=== PATIENT | female | born 1930 | race African-American/Black ===

== ENCOUNTER 2017-09-14 20:20 | Inpatient (IN) | payer MEDICARE, BC ==
[~2017-09-14] VITALS: Ht 160 cm; Wt 71.7 kg
[2017-09-15] MEDS: FUROSEMIDE 40MG/4ML VIAL IV STA ×3 (00:47→01:46)
[2017-09-15] MEDS ORDERED: NITROGLYCERIN OINT 1GM/INCH UDPKT TD STA (00:47)
[2017-09-15] MEDS ORDERED: LEVOFLOXACIN 750MG PREMIX 150 ML IV ONE (01:15)
[2017-09-15 01:31] LABS: BASOPHILS % 0.6 % (0.0-2.0); EOSINOPHILS % 0.5 % (0.0-5.0); HEMATOCRIT. 34.1 % (36.0-48.0); HEMOGLOBIN. 10.7 g/dL (12.0-16.0); LYMPHOCYTES % 17.2 % (20.0-50.0); MEAN CORPUSCULAR HEMOGLOBIN 29.5 pg (28.0-32.0); MEAN CORPUSCULAR VOLUME 93.7 fL (81.0-99.0); MEAN PLATELET VOLUME 8.9 fl (7.4-10.4); MONOCYTES % 13.2 % (2.0-8.0); NEUTROPHILS % 68.5 % (40.0-76.0); PLATELET 243 x1000/uL (130-400); RED BLOOD CELL COUNT 3.64 mill/uL (4.2-5.4); RED CELL DISTRIBUTION WIDTH 15.5 % (11.6-14.6)
[2017-09-15 01:40] LABS: INR 1.3; PROTHROMBIN TIME 13.2 sec (9.4-11.6)
[2017-09-15 01:48] LABS: CARBON DIOXIDE 25 mEq/L (21-32); CHLORIDE 107 mEq/L (98-107); TROPONIN I 0.09 ng/mL (0.00-0.04)
[2017-09-15 01:49] LABS: CREATINE KINASE MB FRACTION 3.1 ng/mL (0.5-3.6)
[2017-09-15] MEDS: SODIUM CHLORIDE 0.9% 1,000 ML IV ONE ×2 (02:55→02:58)
[2017-09-15 03:08] LABS: CLARITY URINE CLEAR (CLEAR); COLOR URINE YELLOW (YELLOW); KETONES URINE TRACE (NEGATIVE); LEUKOCYTE ESTERASE URINE NEGATIVE (NEGATIVE); NITRITE URINE NEGATIVE (NEGATIVE); OCCULT BLOOD URINE NEGATIVE (NEGATIVE); PH URINE 6.5 (4.5-8.0); PROTEIN URINE 2+ (NEGATIVE)
[2017-09-15] MEDS ORDERED: ASPIRIN 325MG EC TABLET PO ONE (03:30)
[2017-09-15] MEDS ORDERED: IPRATROPIUM/ALBUTEROL 0.5-3(2.5)MG/3ML NEB INH PRN (10:45)
[2017-09-15] MEDS ORDERED: MORPHINE SULFATE 4 MG/ML CPJ (NOT FOR IM USE) IV PRN (10:45)
[2017-09-15] MEDS ORDERED: NA PHOS,M-B/NA PHOS,DI-BA ENEMA 118ML PR PRN (10:45)
[2017-09-15] MEDS ORDERED: DOCUSATE SODIUM 100MG CAPSULE PO PRN (10:45)
[2017-09-15] MEDS ORDERED: ONDANSETRON HCL 4MG/2ML VIAL IV PRN (10:45)
[2017-09-15] MEDS ORDERED: GUAIFENESIN 200MG/10ML SUGAR FREE UDC PO PRN (10:45)
[2017-09-15] MEDS ORDERED: NITROGLYCERIN 0.4MG TABLET SL SL PRN (10:45)
[2017-09-15] MEDS ORDERED: MAGNESIUM/ALUMINUM HYDROXIDE/SIMETHICONE 30ML UDC PO PRN (10:45)
[2017-09-15] MEDS ORDERED: CLONIDINE 0.1MG TABLET PO PRN (10:45)
[2017-09-15] MEDS ORDERED: ACETAMINOPHEN 325MG TABLET PO PRN (10:45)
[2017-09-15] MEDS ORDERED: DIPHENHYDRAMINE 50MG/ML VIAL IV PRN (10:45)
[2017-09-15] MEDS ORDERED: AZITHROMYCIN 500 MG in DEXT 5% WATER 250 ML IV SCH (10:45)
[2017-09-15 11:21] LABS: T4 FREE 1.45 ng/dL (0.76-1.46)
[2017-09-15] MEDS ORDERED: ENOXAPARIN 30MG/0.3ML SYR SUBCUT SCH (11:30)
[2017-09-15 11:46] LABS: VITAMIN B12 SERUM 1905 pg/mL (211-911)
[2017-09-15 11:51] LABS: FOLIC ACID (FOLATE) SERUM > 20.00 ng/mL (>5.38)
[2017-09-15] MEDS ORDERED: AZITHROMYCIN 500 MG in DEXT 5% WATER 250 ML IV NR (12:00)
[2017-09-15] MEDS ORDERED: CEFTRIAXONE 1 G PREMIX 50 ML IV SCH (13:00)
[2017-09-15] MEDS ORDERED: FUROSEMIDE 40MG/4ML VIAL IVP NR (13:15)
[2017-09-15 16:10] LABS: TROPONIN I 0.05 ng/mL (0.00-0.04)
[2017-09-15 16:11] LABS: CREATINE KINASE MB FRACTION 2.2 ng/mL (0.5-3.6)
[2017-09-15] MEDS ORDERED: TRAMADOL 50MG TABLET PO PRN (18:00)
[2017-09-15 18:08] LABS: *AMPHETAMINES SCREEN URINE NEGATIVE (NEGATIVE); *BARBITURATES SCREEN URINE NEGATIVE (NEGATIVE); *BENZODIAZEPINES SCREEN URINE NEGATIVE (NEGATIVE); *COCAINE SCREEN URINE NEGATIVE (NEGATIVE); CANNABINOID URINE SCREEN NEGATIVE (NEGATIVE); METHADONE URINE SCREEN NEGATIVE (NEGATIVE); OPIATES URINE SCREEN NEGATIVE (NEGATIVE); PHENCYCLIDINE URINE SCREEN NEGATIVE (NEGATIVE)
[2017-09-15 20:00] VITALS: BP 132/61
[2017-09-15 20:30] VITALS: BP 132/61
[2017-09-15] MEDS ORDERED: ZOLPIDEM TARTRATE 5MG TABLET PO PRN (21:00)
[2017-09-15] MEDS: GUAIFENESIN/DM 600MG/30MG ER TAB 12HR PO SCH (21:00)
[2017-09-15] MEDS: LISINOPRIL 20MG TABLET PO SCH (21:00)
[2017-09-15] MEDS: SUCRALFATE 1 G/10 ML UDC PO SCH (21:00)
[2017-09-16] VITALS: BP 125/55
[2017-09-16 00:41] LABS: CREATINE KINASE MB FRACTION 1.9 ng/mL (0.5-3.6); TROPONIN I 0.06 ng/mL (0.00-0.04)
[2017-09-16] MEDS ORDERED: CHOL20004 PO (03:56)
[2017-09-16] MEDS ORDERED: ENAL10TA PO (03:56)
[2017-09-16] MEDS ORDERED: METO25TA6 PO (03:56)
[2017-09-16] MEDS ORDERED: SIMV40TA5 PO (03:56)
[2017-09-16] MEDS ORDERED: RIVA10TA PO (03:56)
[2017-09-16] MEDS ORDERED: ENAL20TA PO (03:56)
[2017-09-16] MEDS ORDERED: FURO20TA4 PO (03:56)
[2017-09-16] MEDS ORDERED: DABI150C PO (03:56)
[2017-09-16] MEDS ORDERED: METF750T2 PO (03:56)
[2017-09-16] MEDS ORDERED: POTA20TA12 PO (03:56)
[2017-09-16 04:00] VITALS: BP 117/52
[2017-09-16] MEDS ORDERED: TORS20TA4 PO (05:12)
[2017-09-16 08:00] VITALS: BP 125/56
[2017-09-16] MEDS: GUAIFENESIN/DM 600MG/30MG ER TAB 12HR PO SCH ×2 (09:00→20:36)
[2017-09-16] MEDS ORDERED: DEXTROSE 50% WATER 50ML SYRINGE IV PRN (09:45)
[2017-09-16] MEDS: SUCRALFATE 1 G/10 ML UDC PO SCH ×4 (11:20→20:35)
[2017-09-16] MEDS: ASPIRIN 325MG EC TABLET PO SCH (11:21)
[2017-09-16] MEDS: FAMOTIDINE 20MG/2ML VIAL IV SCH (11:22)
[2017-09-16] MEDS: CARVEDILOL 3.125 MG TABLET PO SCH ×2 (11:22→17:12)
[2017-09-16] MEDS: FUROSEMIDE 40MG/4ML VIAL IVP SCH ×2 (11:22→17:12)
[2017-09-16] MEDS: LISINOPRIL 20MG TABLET PO SCH ×2 (11:23→20:35)
[2017-09-16 12:00] VITALS: BP 133/57
[2017-09-16] MEDS ORDERED: AZITHROMYCIN 500 MG in SODIUM CHLORIDE 0.9% 250 ML IV SCH (12:00)
[2017-09-16] MEDS: INSULIN LISPRO 100 UNITS/ML SUBCUT SCH ×3 (12:29→20:33)
[2017-09-16] MEDS: BLOOD SUGAR DIAGNOSTIC STRIP TEST SCH ×3 (12:29→20:34)
[2017-09-16] MEDS: ZINC SULFATE 220 MG ( 50 ) CAPSULE PO SCH (13:12)
[2017-09-16 16:00] VITALS: BP 118/70
[2017-09-16] MEDS: RIVAROXABAN 15 MG TABLET PO SCH (17:12)
[2017-09-16 19:42] VITALS: BP 128/78
[2017-09-16] MEDS: ATORVASTATIN CALCIUM 20MG TABLET PO SCH (20:35)
[2017-09-16] MEDS: CEFTRIAXONE 1 G PREMIX 50 ML IV SCH (20:35)
[2017-09-17] VITALS: BP 117/56
[2017-09-17 04:00] VITALS: BP 124/60
[2017-09-17] MEDS: INSULIN LISPRO 100 UNITS/ML SUBCUT SCH ×4 (06:16→20:10)
[2017-09-17] MEDS: BLOOD SUGAR DIAGNOSTIC STRIP TEST SCH ×4 (06:16→20:10)
[2017-09-17] MEDS: SUCRALFATE 1 G/10 ML UDC PO SCH ×4 (06:29→21:07)
[2017-09-17 07:02] LABS: BASOPHILS % 0.5 % (0.0-2.0); EOSINOPHILS % 2.1 % (0.0-5.0); HEMATOCRIT. 29.5 % (36.0-48.0); HEMOGLOBIN. 9.8 g/dL (12.0-16.0); LYMPHOCYTES % 20.1 % (20.0-50.0); MEAN CORPUSCULAR HEMOGLOBIN 30.8 pg (28.0-32.0); MEAN CORPUSCULAR VOLUME 92.5 fL (81.0-99.0); MEAN PLATELET VOLUME 8.9 fl (7.4-10.4); MONOCYTES % 14.1 % (2.0-8.0); NEUTROPHILS % 63.2 % (40.0-76.0); PLATELET 182 x1000/uL (130-400); RED BLOOD CELL COUNT 3.18 mill/uL (4.2-5.4); RED CELL DISTRIBUTION WIDTH 15.6 % (11.6-14.6)
[2017-09-17 08:50] VITALS: BP 126/67
[2017-09-17] MEDS ORDERED: POTASSIUM CHLORIDE 20MEQ/PACKET PO SCH (09:00)
[2017-09-17] MEDS: AZITHROMYCIN 500 MG TABLET PO SCH (09:41)
[2017-09-17] MEDS: FUROSEMIDE 40MG/4ML VIAL IVP SCH ×2 (09:41→17:43)
[2017-09-17] MEDS: FAMOTIDINE 20MG/2ML VIAL IV SCH (09:41)
[2017-09-17] MEDS: LISINOPRIL 20MG TABLET PO SCH ×2 (09:42→21:07)
[2017-09-17] MEDS: ZINC SULFATE 220 MG ( 50 ) CAPSULE PO SCH (09:42)
[2017-09-17] MEDS: CARVEDILOL 3.125 MG TABLET PO SCH ×3 (09:42→17:43)
[2017-09-17] MEDS: GUAIFENESIN/DM 600MG/30MG ER TAB 12HR PO SCH ×2 (09:42→21:06)
[2017-09-17] MEDS: ASPIRIN 325MG EC TABLET PO SCH (09:53)
[2017-09-17] MEDS ORDERED: POTASSIUM CHLORIDE INJ 20 MEQ in SODIUM CHLORIDE 0.9% 100 ML IV SCH (10:00)
[2017-09-17 12:48] VITALS: BP 127/63
[2017-09-17 17:24] VITALS: BP 117/42
[2017-09-17] MEDS: RIVAROXABAN 15 MG TABLET PO SCH (17:43)
[2017-09-17 20:00] VITALS: BP 120/51
[2017-09-17] MEDS ORDERED: MAGNESIUM 2 G PREMIX 50 ML IV NR (20:30)
[2017-09-17] MEDS: CEFTRIAXONE 1 G PREMIX 50 ML IV SCH (20:53)
[2017-09-17] MEDS: ATORVASTATIN CALCIUM 20MG TABLET PO SCH (21:06)
[2017-09-18] VITALS: BP 136/50
[2017-09-18 04:00] VITALS: BP 125/49
[2017-09-18] MEDS: BLOOD SUGAR DIAGNOSTIC STRIP TEST SCH ×2 (05:44→11:37)
[2017-09-18] MEDS: SUCRALFATE 1 G/10 ML UDC PO SCH ×2 (05:57→11:41)
[2017-09-18] MEDS: INSULIN LISPRO 100 UNITS/ML SUBCUT SCH ×2 (06:01→11:46)
[2017-09-18 06:47] LABS: BASOPHILS % 0.7 % (0.0-2.0); EOSINOPHILS % 4.1 % (0.0-5.0); HEMATOCRIT. 30.4 % (36.0-48.0); HEMOGLOBIN. 9.9 g/dL (12.0-16.0); LYMPHOCYTES % 20.8 % (20.0-50.0); MEAN CORPUSCULAR HEMOGLOBIN 30.2 pg (28.0-32.0); MEAN CORPUSCULAR VOLUME 92.5 fL (81.0-99.0); MEAN PLATELET VOLUME 9.1 fl (7.4-10.4); MONOCYTES % 14.6 % (2.0-8.0); NEUTROPHILS % 59.8 % (40.0-76.0); PLATELET 205 x1000/uL (130-400); RED BLOOD CELL COUNT 3.29 mill/uL (4.2-5.4); RED CELL DISTRIBUTION WIDTH 15.7 % (11.6-14.6)
[2017-09-18 08:35] VITALS: BP 125/45
[2017-09-18] MEDS: FAMOTIDINE 20MG/2ML VIAL IV SCH (09:28)
[2017-09-18] MEDS: GUAIFENESIN/DM 600MG/30MG ER TAB 12HR PO SCH (09:28)
[2017-09-18] MEDS: FUROSEMIDE 40MG/4ML VIAL IVP SCH (09:28)
[2017-09-18] MEDS: ZINC SULFATE 220 MG ( 50 ) CAPSULE PO SCH (09:28)
[2017-09-18] MEDS: ASPIRIN 325MG EC TABLET PO SCH (09:28)
[2017-09-18] MEDS: AZITHROMYCIN 500 MG TABLET PO SCH (09:37)
[2017-09-18] MEDS: LISINOPRIL 20MG TABLET PO SCH (09:37)
[2017-09-18] MEDS: CARVEDILOL 3.125 MG TABLET PO SCH (09:37)
[2017-09-18 12:00] VITALS: BP 122/49
[2017-09-18 13:18] VITALS: BP 122/49
[2017-09-18 16:00] VITALS: BP 106/46
[2017-09-18] MEDS ORDERED: CEFTRIAXONE 1,000 MG in SODIUM CHLORIDE 0.9% 50 ML IV SCH (21:00)
== END 2017-09-18 17:00 | disposition home health service (06) | DRG 871 ==
LOC: ER 20:38 → 8WST 09-15 03:55 → EDBEDREQ 09-15 04:00 → EDBEDREQTM 09-15 04:00 → SUPCPDRO 09-15 10:41 → ENRESERV 09-15 18:30
PROVIDERS: ADMIT Internal Medicine; ATTEND Internal Medicine
DX: A41.9 Sepsis, unspecified organism (principal); G93.40 Encephalopathy, unspecified; I50.43 Acute on chronic combined systolic (congestive) and diastolic (congestive) heart failure; I27.21 Secondary pulmonary arterial hypertension; J18.1 Lobar pneumonia, unspecified organism; I48.91 Unspecified atrial fibrillation; E44.1 Mild protein-calorie malnutrition; I11.0 Hypertensive heart disease with heart failure; N39.0 Urinary tract infection, site not specified; D64.9 Anemia, unspecified; E11.9 Type 2 diabetes mellitus without complications; B96.89 Other specified bacterial agents as the cause of diseases classified elsewhere; E87.6 Hypokalemia; Z95.0 Presence of cardiac pacemaker; Z79.01 Long term (current) use of anticoagulants; Z88.0 Allergy status to penicillin
CPT/HCPCS: 36415; 51702; 70450; 71045; 80048; 80053; 80061; 80305; 81001; 82550; 82553; 82607; 82746; 82962; 83036; 83540; 83550; 83605; 83735; 83880; 84439; 84443; 84484; 85025; 85610; 85730; 87040; 87077; 87086; 87186; 87804; 93005; 93306; 93970; 93971; 96365; 96375; 97116; 97162; 97166; 97535; 99291; J0456; J0696; J1650; J1940; J1956; J3475; J3480; J3490; J7030; J7040; J7050; J7060; A4315